=== PATIENT | female | born 1970 | race Caucasian/White ===

== ENCOUNTER 2017-02-01 10:24 | Emergency (ER) | payer BC, OTHER ==
[~2017-02-01] VITALS: Ht 162.6 cm; Wt 108.9 kg
[~2017-02-01 10:24] MED LIST: BACTRIM-DS1 EA PO; KEFLEX500 MG PO; NORCO 10-325 T1 EACH PO; NORCO 5-325 TA1 EACH PO; VIBRAMYCIN100 MG ORAL
[2017-02-01] MEDS ORDERED: NKM (10:36)
[2017-02-01] MEDS ORDERED: Famotidine 20 MG/ 2ML VIAL IVP ONE (10:45)
[2017-02-01 11:15] VITALS: BP 119/84
[2017-02-01 11:20] LABS: MEAN CORPUSCULAR HEMOGLOBIN 29.8 PG (27.0-31.0); MEAN CORPUSCULAR HGB CONC 32.2 G/DL (32.0-36.0); MEAN CORPUSCULAR VOLUME 92 FL (80-99); MEAN PLATELET VOLUME 8.6 FL (6.5-10.1); PLATELET COUNT 247 K/UL (150-450); RED BLOOD COUNT 5.36 M/UL (4.20-5.40); RED CELL DISTRIBUTION WIDTH 11.6 % (11.6-14.8)
[2017-02-01 11:35] LABS: ALANINE AMINOTRANSFERASE 48 U/L (3-33); ALBUMIN/GLOBULIN RATIO 1.4 (1.0-2.7); ANION GAP 17 (5-15); ASPARTATE AMINO TRANSFERASE 36 U/L (5-40); CALCIUM 9.3 mg/dL (8.6-10.2); CARBON DIOXIDE 23 mEQ/L (20-30); CHLORIDE 96 mEQ/L (98-107); CREATININE 0.6 mg/dL (0.5-0.9); GLOMERULAR FILTRATION RATE > 60 mL/min (>60); HEMOLYSIS 6; LIPASE 52 U/L (< 60); POTASSIUM 4.2 mEQ/L (3.4-4.9); SODIUM 136 mEQ/L (135-145); TOTAL PROTEIN 7.3 g/dL (6.6-8.7)
[2017-02-01 11:40] LABS: TROPONIN I < 0.30 ng/mL (<=0.30)
[2017-02-01 12:01] VITALS: BP 122/79
[2017-02-01 12:02] LABS: BAND NEUTROPHILS % (MANUAL) 4 % (0-8); BASOPHILS % (MANUAL) 0 % (0-2); EOSINOPHILS % (MANUAL) 0 % (0-3); LYMPHOCYTES % (MANUAL) 5 % (20-45); NEUTROPHILS % (MANUAL) 88 % (45-75); PLATELET ESTIMATE ADEQUATE; PLATELET MORPHOLOGY NORMAL; TOTAL CELLS COUNTED 100
[2017-02-01 12:43] LABS: APPEARANCE,URINE CLOUDY; KETONES,URINE 3+ (NEGATIVE); LEUKOCYTE ESTERASE ,URINE 1+ (NEGATIVE); NITRITE,URINE NEGATIVE (NEGATIVE); PH,URINE 6 (4.5-8.0); PROTEIN,URINE 2+ (NEGATIVE); UROBILINOGEN,URINE NORMAL MG/DL (0.0-1.0)
[2017-02-01 12:45] LABS: BACTERIA,URINE FEW /HPF; RBC,URINE TNTC /HPF (0 - 2); SQUAMOUS EPITHELIAL CELL,UR FEW /LPF (NONE/OCC)
[2017-02-01] MEDS ORDERED: Meclizine 25mg tab ORAL ONE (13:45)
[2017-02-01 14:04] VITALS: BP 100/52
--- NOTE | 2017-02-01 14:15 | Diagnostic Imaging Report ---
Clinical Indication: Abdominal pain Technique: No oral contrast utilized, per emergency room physician request IV administration nonionic contrast. Venous phase spiral acquisition obtained through the abdomen and pelvis. Multiplanar reconstructions were generated. Total dose length product 1047 mGycm. CTDIvol(s) 8 mGy Comparison: None Findings: The appendix is normal. There is colonic diverticulosis, mostly in the proximal colon. No evidence of diverticulitis. No free or loculated intraperitoneal air or fluid is evident. No small bowel distention. There is a lap band, position of which appears to be satisfactory. There is mild thickening of the distal esophageal wall, likely related to this. The remainder of the stomach and duodenum are unremarkable. The liver is diffusely markedly hypoattenuating, compatible with severe fatty change. The gallbladder is surgically absent and there are cholecystectomy clips present. The bile ducts are unremarkable. The pancreas and spleen are unremarkable. There is an accessory splenule. The adrenals are unremarkable. The kidneys demonstrate bilateral subcentimeter low-attenuation lesions which are too small to characterize. The uterus and adnexal structures are unremarkable. No pelvic or retroperitoneal or mesenteric mass or adenopathy. The lung bases demonstrate minimal atelectasis on the right. The bones are unremarkable except for minimal degenerative spondylosis changes. Impression: No acute abnormality Lap band in satisfactory position. Mild distal esophageal wall thickening, likely related to the above. Fatty liver Bilateral subcentimeter low-attenuation renal lesions, too small to characterize, most likely benign simple cortical cysts. No further followup necessary Other findings as noted, including degenerative spondylosis, right basilar atelectasis The CT scanner at [facility] is accredited by the [employer] and the scans are performed using protocols designed to limit radiation exposure to as low as reasonably achievable to attain images of sufficient resolution adequate for diagnostic evaluation.
[2017-02-01] MEDS ORDERED: ZOFRAN ODT4 MG ORAL (14:23)
[2017-02-01] MEDS ORDERED: RANITIDINE HCL150 MG ORAL (14:23)
[2017-02-01 14:28] VITALS: BP 100/52
--- NOTE | 2017-02-01 15:06 | Emergency Room Report ---
History of Present Illness General Chief Complaint: Dizziness Source: Patient Present Illness HPI 46-year-old female presents to ED for evaluation. Per EMS patient complaining of dizziness and weakness with vomiting and diarrhea x1 day. Patient has low- grade fever. States that other members of her family have similar symptoms. Denies cough. Denies dysuria or hematuria. Denies chest pain or shortness of breath. Complaining of some abdominal pain, sharp, 5/10, nonradiating. No other aggravating or relieving factors. Patient notes history of lap band surgery. Denies any other associated symptoms Allergies: Coded Allergies: SULFA (SULFONAMIDE ANTIBIOTICS) (Verified Allergy, Unknown, 02/01/17) Uncoded Allergies: Sulfa (Allergy, Unknown, 02/01/17) Patient History Past Medical History: none Past Surgical History: other - lapband Pertinent Family History: none Social History: Denies: alcohol use, drug use, smoking Last Menstrual Period: 01/28/17 Now: No Immunizations: UTD Reviewed Nursing Documentation: PMH: Agreed, PSxH: Agreed Nursing Documentation-PMH Past Medical History: No Stated History Review of Systems All Other Systems: negative except mentioned in HPI Physical Exam Vital Signs Date Time Temp Pulse Resp B/P Pulse Ox O2 Delivery O2 Flow Rate FiO2 02/01/17 10:26 99.0 130 17 119/84 100 Room Air 02/01/17 11:15 2.0 Sp02 EP Interpretation: reviewed, normal General Appearance: no apparent distress, alert, GCS 15, non-toxic, obese Head: normocephalic, atraumatic Eyes: bilateral eye PERRL, bilateral eye normal inspection ENT: hearing grossly normal, normal pharynx, no angioedema, normal voice Neck: full range of motion, supple/symm/no masses Respiratory: chest non-tender, lungs clear, normal breath sounds, speaking full sentences Cardiovascular #1: regular rate, rhythm, no edema Cardiovascular #2: 2+ carotid (R), 2+ carotid (L), 2+ radial (R), 2+ radial (L) , 2+ dorsalis pedis (R), 2+ dorsalis pedis (L) Gastrointestinal: normal bowel sounds, soft, non-distended, no guarding, no rebound Rectal: deferred Genitourinary: normal inspection, no CVA tenderness Musculoskeletal: back normal, gait/station normal, normal range of motion, non- tender Neurologic: alert, oriented x3, responsive, motor strength/tone normal, sensory intact, speech normal Psychiatric: judgement/insight normal, memory normal, mood/affect normal, no suicidal/homicidal ideation Reflexes: 3+ bicep (R), 3+ bicep (L), 3+ tricep (R), 3+ tricep (L), 3+ knee (R) , 3+ knee (L) Skin: normal color, no rash, warm/dry, well hydrated Lymphatic: no adenopathy Medical Decision Making Diagnostic Impression: Primary Impression: Gastroenteritis ER Course Hospital Course 46-year-old M presents to ED with abdominal pain, vomiting, diahrrea. dizzziness. h/o lap band surgery Differential diagnosis includes-appendicitis, cholecystitis, small bowel obstruction, gastritis, Clinical course Patient placed on stretcher. After initial history and physical I ordered labs , IV fluids, zofran, zantac and CT scan EKG - sinus tachy,no acute changes Labs - no leukocytosis, electrolytes ok, LFTs normal, UA unremarkable CT scan shows no acute pathology. lapband in place Upon reassessment, patient states pain has improved. Given improvement in symptoms and lack of acute findings, I believe patient can be safely discharged to home. Patient agrees with plan I feel this is a highly complex case requiring extensive working including EKG/ Rhythm strip, Xray/CT/US, Blood/urine lab work, repeat exams while in ED, and administration of strong opiates/narcotics for pain control, admission to hospital or close patient follow up. Diagnosis - gastroenteritis Stable and discharged to home. Followup with PMD. Return to ED if symptoms recur or worsen Labs Test 02/01/17 11:09 02/01/17 12:00 White Blood Count 9.0 K/UL (4.8-10.8) Red Blood Count 5.36 M/UL (4.20-5.40) Hemoglobin 16.0 G/DL (12.0-16.0) Hematocrit 49.5 % (37.0-47.0) Mean Corpuscular Volume 92 FL (80-99) Mean Corpuscular Hemoglobin 29.8 PG (27.0-31.0) Mean Corpuscular Hemoglobin Concent 32.2 G/DL (32.0-36.0) Red Cell Distribution Width 11.6 % (11.6-14.8) Platelet Count 247 K/UL (150-450) Mean Platelet Volume 8.6 FL (6.5-10.1) Neutrophils (%) (Auto) % (45.0-75.0) Lymphocytes (%) (Auto) % (20.0-45.0) Monocytes (%) (Auto) % (1.0-10.0) Eosinophils (%) (Auto) % (0.0-3.0) Basophils (%) (Auto) % (0.0-2.0) Differential Total Cells Counted 100 Neutrophils % (Manual) 88 % (45-75) Lymphocytes % (Manual) 5 % (20-45) Monocytes % (Manual) 3 % (1-10) Eosinophils % (Manual) 0 % (0-3) Basophils % (Manual) 0 % (0-2) Band Neutrophils 4 % (0-8) Platelet Estimate Adequate Platelet Morphology Normal Red Blood Cell Morphology Normal Sodium Level 136 mEQ/L (135-145) Potassium Level 4.2 mEQ/L (3.4-4.9) Chloride Level 96 mEQ/L (98-107) Carbon Dioxide Level 23 mEQ/L (20-30) Anion Gap 17 (5-15) Blood Urea Nitrogen 13 mg/dL (7-23) Creatinine 0.6 mg/dL (0.5-0.9) Estimat Glomerular Filtration Rate > 60 mL/min (>60) Glucose Level 314 mg/dL (74-106) Calcium Level 9.3 mg/dL (8.6-10.2) Total Bilirubin 0.6 mg/dL (0.0-1.2) Aspartate Amino Transf (AST/SGOT) 36 U/L (5-40) Alanine Aminotransferase (ALT/SGPT) 48 U/L (3-33) Alkaline Phosphatase 107 U/L (35-104) Troponin I < 0.30 ng/mL (<=0.30) Total Protein 7.3 g/dL (6.6-8.7) Albumin 4.3 g/dL (3.5-5.2) Globulin 3.0 g/dL Albumin/Globulin Ratio 1.4 (1.0-2.7) Lipase 52 U/L (< 60) Urine Color Red Urine Appearance Cloudy Urine pH 6 (4.5-8.0) Urine Specific [place] 1.015 (1.005-1.035) Urine Protein 2+ (NEGATIVE) Urine Glucose (UA) 4+ (NEGATIVE) Urine Ketones 3+ (NEGATIVE) Urine Occult Blood 5+ (NEGATIVE) Urine Nitrite Negative (NEGATIVE) Urine Bilirubin Negative (NEGATIVE) Urine Urobilinogen Normal MG/DL (0.0-1.0) Urine Leukocyte Esterase 1+ (NEGATIVE) Urine RBC Tntc /HPF (0 - 2) Urine WBC 2-4 /HPF (0 - 2) Urine Squamous Epithelial Cells Few /LPF (NONE/OCC) Urine Bacteria Few /HPF (NONE) Urine HCG, Qualitative Negative EKG Diagnostic Results Rate: tachycardiac Rhythm: NSR ST Segments: no acute changes ASA given to the pt in ED: No Rhythm Strip Diag. Results EP Interpretation: yes Rhythm: NSR, no PVC's, no ectopy CT/MRI/US Diagnostic Results CT/MRI/US Diagnostic Results : Imaging Test Ordered: CT A/P Impression lap band in place. no other acute process Last Vital Signs Date Time Temp Pulse Resp B/P Pulse Ox O2 Delivery O2 Flow Rate FiO2 02/01/17 14:28 98.4 105 18 100/52 97 Room Air 02/01/17 12:01 2.0 Status: improved Disposition: HOME, SELF-CARE Condition: Stable Scripts Ranitidine Hcl* (ZANTAC*) 150 Mg Tablet 150 MG ORAL TWICE A DAY, #30 TAB Prov: LUCITA JOHANSEN M.D. 02/01/17 Ondansetron Odt* (ZOFRAN ODT*) 4 Mg Tab.rapdis 4 MG ORAL Q6H Y for Nausea & Vomiting, #30 TAB 0 Refills Prov: LUCITA JOHANSEN M.D. 02/01/17 Patient Instructions: Viral Gastroenteritis, Adult, [id number] LUCITA JOHANSEN M.D. Feb 01, 2017 15:06
--- NOTE | 2017-02-01 15:39 | Diagnostic Imaging Report ---
Indication: COUGH Technique: One view of the chest Comparison: 12/25/2011 Findings: Lungs and pleural spaces are clear. Heart size is normal. No significant change Impression: No acute process
--- NOTE | 2017-02-02 20:26 | Cardiology Report ---
APPROVED REPORT EKG Measurement Heart [id number] Sinus tachycardia Otherwise normal ECG
== END 2017-02-01 14:37 | disposition home or self-care (01) ==
LOC: EDBD 10:24 → EDUNIT# 10:24 → EMR 11:00
DX: K52.9 Noninfective gastroenteritis and colitis, unspecified (principal); R42 Dizziness and giddiness; F50.9 Eating disorder, unspecified; Z88.2 Allergy status to sulfonamides; R00.0 Tachycardia, unspecified
CPT/HCPCS: 36415; 71010; 74177; 80053; 81003; 81025; 83690; 84484; 85007; 85025; 93005; 96360; 96374; 96375; 99284; J2405; Q9967; S0028

== ENCOUNTER 2019-12-21 07:36 | Emergency (ER) | payer OTHER ==
[~2019-12-21] VITALS: Ht 162.6 cm; Wt 99.8 kg
[~2019-12-21 07:36] MED LIST changes: +NKM; +RANITIDINE HCL150 MG ORAL; +ZOFRAN ODT4 MG ORAL
[2019-12-21] MEDS ORDERED: NOVOLOG100 UNIT/4 SQ (07:45)
[2019-12-21] MEDS ORDERED: METFORMIN HCL500 M4 ORAL (07:45)
--- NOTE | 2019-12-21 07:50 | NUR ---
ED Nurse Note: Pt walked in from home c/o sharp pain on left abdomen x 3 days. Pt reports nausea, but denies vomiting and diarrhea. Pt has recent diagnosis of abdominal hernia. Respirations even and unlabored on room air. Vitals stable as documented.
[2019-12-21 07:57] VITALS: BP 152/89
[2019-12-21] MEDS ORDERED: Morphine Sulfate 4mg/ml Inj (IV USE ONLY) IVP ONE ×2 (08:15→09:30)
--- NOTE | 2019-12-21 08:44 | Emergency Room Report ---
History of Present Illness General Chief Complaint: Abdominal Pain Source: Patient Present Illness HPI 49-year-old female presents ED for abdominal pain. Started 3 days ago. Pain is left-sided, sharp, 9 out of 10, nonradiating. Notes nausea, denies vomiting. Denies fevers or chills. Denies chest pain. States she was seen at [facility] last night. Had a CT scan which showed a hernia on the left side. Was subsequently discharged. States that she was prescribed [place] which is not helping for pain. No other aggravating relieving factors. Denies any other associated symptoms Allergies: Coded Allergies: SULFA (SULFONAMIDE ANTIBIOTICS) (Verified Allergy, Unknown, 02/01/17) Uncoded Allergies: Sulfa (Allergy, Unknown, 02/01/17) Patient History Past Medical History: DM, other - breast cancer Social History: Denies: smoking, alcohol use, drug use Now: No Immunizations: UTD Reviewed Nursing Documentation: PMH: Agreed; PSxH: Agreed Nursing Documentation-PMH Hx Diabetes: Yes - type 2 Hx Cancer: Yes - breast cancer Hx Gastrointestinal Problems: Yes Review of Systems All Other Systems: negative except mentioned in HPI Physical Exam Vital Signs Date Time Temp Pulse Resp B/P (MAP) Pulse Ox O2 Delivery O2 Flow Rate FiO2 12/21/19 07:40 98.4 87 19 157/91 (113) 99 Room Air Sp02 EP Interpretation: reviewed, normal General Appearance: alert, GCS 15, non-toxic, mild distress, obese Head: normocephalic, atraumatic Eyes: bilateral eye normal inspection, bilateral eye PERRL ENT: hearing grossly normal, normal pharynx, no angioedema, normal voice Neck: full range of motion, supple/symm/no masses Respiratory: chest non-tender, lungs clear, normal breath sounds, speaking full sentences Cardiovascular #1: regular rate, rhythm, no edema Cardiovascular #2: 2+ carotid (R), 2+ carotid (L), 2+ radial (R), 2+ radial (L) , 2+ dorsalis pedis (R), 2+ dorsalis pedis (L) Gastrointestinal: normal bowel sounds, soft, non-distended, no guarding, no rebound, tenderness - L sided abd TTP Rectal: deferred Genitourinary: normal inspection, no CVA tenderness Musculoskeletal: back normal, normal range of motion, gait/station normal, non- tender Neurologic: alert, motor strength/tone normal, oriented x3, sensory intact, responsive, speech normal Psychiatric: judgement/insight normal, memory normal, mood/affect normal, no suicidal/homicidal ideation Reflexes: 3+ bicep (R), 3+ bicep (L), 3+ tricep (R), 3+ tricep (L), 3+ knee (R) , 3+ knee (L) Skin: no rash Lymphatic: no adenopathy Medical Decision Making Diagnostic Impression: Primary Impression: Abdominal pain Qualified Codes: R10.32 - Left lower quadrant pain ER Course Hospital Course 49-year-old F presents to ED with abdominal pain. seen yesterday at [facility] for the same thing Differential diagnosis includes-appendicitis, cholecystitis, small bowel obstruction, gastritis, Clinical course Patient placed on stretcher. After initial history and physical I ordered labs , IV fluids, pain medications Labs - no leukocytosis, electrolytes ok, LFTs normal, UA unremarkable Continues to have pain. I spoke to [facility] ER. They documented that patient was seen scanning tech on 12/20. Had labs and CT. CT commented on cholecystectomy. Hiatal hernia. Lap band. No other pathology. Discussed this with the patient. I do not believe it was indicated to repeat CT at this time. Patient continues to have pain. I ordered ultrasound which was unremarkable. Dr. Moreno (surgery) at bedside to evaluate patient. He agrees that this pain is likely chronic and has a partial psychiatric component which I agree with. Patient is currently receiving treatment for breast cancer at [facility] and is receiving experimental medications. No further intervention at this time. Will discharge home. Recommend close follow-up with her specialist at [facility] I feel this is a highly complex case requiring extensive working including EKG/ Rhythm strip, Xray/CT/US, Blood/urine lab work, repeat exams while in ED, and administration of strong opiates/narcotics for pain control, admission to hospital or close patient follow up. Diagnosis - abdominal pain Stable and discharged to home. Followup with PMD. Return to ED if symptoms recur or worsen Labs Test 12/21/19 08:25 12/21/19 09:40 White Blood Count 5.7 K/UL (4.8-10.8) Red Blood Count 4.54 M/UL (4.20-5.40) Hemoglobin 13.9 G/DL (12.0-16.0) Hematocrit 40.0 % (37.0-47.0) Mean Corpuscular Volume 88 FL (80-99) Mean Corpuscular Hemoglobin 30.7 PG (27.0-31.0) Mean Corpuscular Hemoglobin Concent 34.9 G/DL (32.0-36.0) Red Cell Distribution Width 12.4 % (11.6-14.8) Platelet Count 271 K/UL (150-450) Mean Platelet Volume 6.0 FL (6.5-10.1) Neutrophils (%) (Auto) 74.4 % (45.0-75.0) Lymphocytes (%) (Auto) 17.3 % (20.0-45.0) Monocytes (%) (Auto) 6.7 % (1.0-10.0) Eosinophils (%) (Auto) 0.7 % (0.0-3.0) Basophils (%) (Auto) 0.9 % (0.0-2.0) Erythrocyte Sedimentation Rate 60 MM/HR (0-20) Sodium Level 140 MMOL/L (136-145) Potassium Level 3.8 MMOL/L (3.5-5.1) Chloride Level 101 MMOL/L (98-107) Carbon Dioxide Level 26 MMOL/L (21-32) Anion Gap 13 mmol/L (5-15) Blood Urea Nitrogen 8 mg/dL (7-18) Creatinine 0.8 MG/DL (0.55-1.30) Estimat Glomerular Filtration Rate > 60 mL/min (>60) Glucose Level 281 MG/DL (74-106) Calcium Level 9.8 MG/DL (8.5-10.1) Total Bilirubin 0.4 MG/DL (0.2-1.0) Aspartate Amino Transf (AST/SGOT) 31 U/L (15-37) Alanine Aminotransferase (ALT/SGPT) 25 U/L (12-78) Alkaline Phosphatase 118 U/L (46-116) Total Protein 8.1 G/DL (6.4-8.2) Albumin 4.0 G/DL (3.4-5.0) Globulin 4.1 g/dL Albumin/Globulin Ratio 1.0 (1.0-2.7) Lipase 189 U/L (73-393) Urine Color Yellow Urine Appearance Clear Urine pH 5 (4.5-8.0) Urine Specific [place] 1.025 (1.005-1.035) Urine Protein 2+ (NEGATIVE) Urine Glucose (UA) 3+ (NEGATIVE) Urine Ketones 1+ (NEGATIVE) Urine Blood 4+ (NEGATIVE) Urine Nitrite Negative (NEGATIVE) Urine Bilirubin Negative (NEGATIVE) Urine Urobilinogen Normal MG/DL (0.0-1.0) Urine Leukocyte Esterase 2+ (NEGATIVE) Urine RBC 2-4 /HPF (0 - 2) Urine WBC 2-4 /HPF (0 - 2) Urine Squamous Epithelial Cells Few /LPF (NONE/OCC) Urine Calcium Oxalate Crystals Few /LPF (NONE) Urine Bacteria Few /HPF (NONE) Urine HCG, Qualitative Negative (NEGATIVE) Lactic Acid Level 1.60 mmol/L (0.4-2.0) C-Reactive Protein, Quantitative 1.0 mg/dL (0.00-0.90) CT/MRI/US Diagnostic Results CT/MRI/US Diagnostic Results : Imaging Test Ordered: ABD US Impression FINDINGS: Liver: Liver measures 15.6 cm. Increased echogenicity is suggestive of hepatic steatosis. No intrahepatic bile duct dilation. Gallbladder: Status post cholecystectomy. Common bile duct: Normal common bile duct measuring 3.7 mm. No stones. No dilation. Pancreas: Pancreas is not well-visualized due to overlying bowel gas. Kidneys: Right kidney measures 10.9 cm in length. No hydronephrosis or stone. Left kidney measures 13.7 cm in length. No hydronephrosis or stone. Spleen: Spleen measures 12.1 cm. No focal lesion. Aorta: Visualized portions of the aorta are unremarkable. Inferior vena cava: Visualized portions of the IVC are unremarkable. Free fluid: No ascites. IMPRESSION: No acute findings in the abdomen. Hepatic steatosis. Last Vital Signs Date Time Temp Pulse Resp B/P (MAP) Pulse Ox O2 Delivery O2 Flow Rate FiO2 12/21/19 07:57 98.4 78 19 152/89 99 Room Air Status: improved Disposition: HOME, SELF-CARE Condition: Stable Referrals: NON PHYSICIAN (PCP) Ben De Leon MD Dec 21, 2019 08:44
[2019-12-21 08:47] LABS: BASOPHILS % (AUTO) 0.9 % (0.0-2.0); EOSINOPHILS % (AUTO) 0.7 % (0.0-3.0); HEMOGLOBIN 13.9 G/DL (12.0-16.0); LYMPHOCYTES % (AUTO) 17.3 % (20.0-45.0); MEAN CORPUSCULAR VOLUME 88 FL (80-99); MONOCYTES % (AUTO) 6.7 % (1.0-10.0); NEUTROPHILS % (AUTO) 74.4 % (45.0-75.0); PLATELET COUNT 271 K/UL (150-450); RED BLOOD COUNT 4.54 M/UL (4.20-5.40); RED CELL DISTRIBUTION WIDTH 12.4 % (11.6-14.8); WHITE BLOOD COUNT 5.7 K/UL (4.8-10.8)
[2019-12-21 08:58] LABS: ANION GAP 13 mmol/L (5-15); BLOOD UREA NITROGEN 8 mg/dL (7-18); CALCIUM 9.8 MG/DL (8.5-10.1); CARBON DIOXIDE 26 MMOL/L (21-32); CHLORIDE 101 MMOL/L (98-107); CREATININE 0.8 MG/DL (0.55-1.30); POTASSIUM 3.8 MMOL/L (3.5-5.1); SODIUM 140 MMOL/L (136-145)
[2019-12-21 09:03] LABS: ALANINE AMINOTRANSFERASE 25 U/L (12-78); ALKALINE PHOSPHATASE 118 U/L (46-116); ASPARTATE AMINO TRANSFERASE 31 U/L (15-37); BILIRUBIN,TOTAL 0.4 MG/DL (0.2-1.0)
--- NOTE | 2019-12-21 09:10 | NUR ---
ED Nurse Note: Pt states that she participates in a clinical trial for breast ca
[2019-12-21] MEDS ORDERED: Ketorolac 30mg Inj IV ONE (09:30)
[2019-12-21 10:00] VITALS: BP 129/92
--- NOTE | 2019-12-21 10:21 | Diagnostic Imaging Report ---
EXAM: US Abdomen Complete CLINICAL HISTORY: ABD PAIN TECHNIQUE: Real-time ultrasound of the abdomen with image documentation. COMPARISON: CT abdomen/pelvis on 02/01/2017 FINDINGS: Liver: Liver measures 15.6 cm. Increased echogenicity is suggestive of hepatic steatosis. No intrahepatic bile duct dilation. Gallbladder: Status post cholecystectomy. Common bile duct: Normal common bile duct measuring 3.7 mm. No stones. No dilation. Pancreas: Pancreas is not well-visualized due to overlying bowel gas. Kidneys: Right kidney measures 10.9 cm in length. No hydronephrosis or stone. Left kidney measures 13.7 cm in length. No hydronephrosis or stone. Spleen: Spleen measures 12.1 cm. No focal lesion. Aorta: Visualized portions of the aorta are unremarkable. Inferior vena cava: Visualized portions of the IVC are unremarkable. Free fluid: No ascites. IMPRESSION: No acute findings in the abdomen. Hepatic steatosis.
[2019-12-21 10:36] LABS: APPEARANCE,URINE CLEAR; BILIRUBIN, URINE NEGATIVE (NEGATIVE); GLUCOSE, URINE (UA) 3+ (NEGATIVE); KETONES,URINE 1+ (NEGATIVE); LEUKOCYTE ESTERASE ,URINE 2+ (NEGATIVE); NITRITE,URINE NEGATIVE (NEGATIVE); PH,URINE 5 (4.5-8.0); PROTEIN,URINE 2+ (NEGATIVE); UROBILINOGEN,URINE NORMAL MG/DL (0.0-1.0)
[2019-12-21 10:49] LABS: COLOR,URINE YELLOW
--- NOTE | 2019-12-21 11:48 | NUR ---
ED Nurse Note: Dr. Moreno at the beside
[2019-12-21 11:59] VITALS: BP 123/72
--- NOTE | 2019-12-21 12:11 | Consultation ---
History of Present Illness General Date patient seen: Dec 21, 2019 Reason for Hospitalization: Abdominal Pain Present Illness HPI This is a very pleasant 49-year-old female with past medical history significant for breast cancer status post bilateral mastectomy status post chemo last cycle 6 months ago who presented to [facility] complaining of intractable left-sided abdominal pain. Patient states that she has had this for some time now. Was admitted at [facility] 2 weeks ago for similar symptoms given antibiotics and discharged home safely. She presented to [facility] again 2 days ago as per report at which time she had a CT scan which was negative normal labs and was discharged from the emergency department with outpatient follow-up. She now presents to [facility] with similar complaints stating that it just has not gotten any better. States she feels terrible overall. No nausea vomiting. States she does not take in much oral intake. States she had a lap band placed many years ago and last adjustment was approximately 3 years ago and she has not followed up since. Last bowel movement yesterday normal. Surgery called to evaluate and assist with care. Patient seen, patient evaluated in the emergency department, chart reviewed. In discussing care plan with patient and her history she states that she has been on a experimental clinical trial with [facility] for a hormonal therapy for breast cancer. I asked her why she has not reached out to them despite having a emergency card which states any issues to call to them and she says she is not sure why. I asked her why she goes to [facility] as well as comes to [facility] for evaluation when her care plan provider especially with clinical trial at [facility] and she states she does not know why. Patient states that she has tramadol and [place] at home and has been taking them but they have not been making her feel better. She states she is feeling little better now that she is getting IV pain medication while she is in the emergency department. Allergies: Coded Allergies: SULFA (SULFONAMIDE ANTIBIOTICS) (Verified Allergy, Unknown, 02/01/17) Uncoded Allergies: Sulfa (Allergy, Unknown, 02/01/17) Medication History Scheduled Metformin Hcl (Metformin Hcl Er), 500 MG ORAL BID, (Reported) Miscellaneous Medications Insulin Aspart (Novolog), Unknown Dose SQ, (Reported) Discontinued Medications No Known Medications* (NKM - No Known Medications*), 0 ., (Reported) Discontinued Reason: Therapy completed Ondansetron Odt* (Zofran Odt*), 4 MG ORAL Q6H PRN for Nausea & Vomiting Discontinued Reason: Therapy completed Ranitidine Hcl* (Zantac*), 150 MG ORAL TWICE A DAY Discontinued Reason: Therapy completed Patient History History Provided By: Patient, Medical Record, PMD Healthcare decision maker Resuscitation status Advanced Directive on File Past Medical/Surgical History Past Medical/Surgical History: (1) Gastroenteritis (2) Abdominal pain Review of Systems Review of Symptoms General ROS: no weight loss or fever Psychological ROS: no depression or mood changes, no memory loss Ophthalmic ROS: no visual changes or eye irritation ENT ROS: no nasal congestion, hearing loss, dizziness Allergy and Immunology ROS: no allergic symptoms or urticaria Hematological and Lymphatic ROS: no swollen glands, unusual bleeding or bruising Endocrine ROS: no polyuria, polydipsia, weight changes, temperature intolerance Respiratory ROS: no cough, shortness of breath, or wheezing Cardiovascular ROS: no chest pain or dyspnea on exertion Gastrointestinal ROS: abdominal pain, no bright red blood in stool. Musculoskeletal ROS: no myalgias or arthralgias Neurological ROS: no TIA or stroke symptoms Dermatological ROS: no new or changing skin lesions, rashes or pruritis Physical Exam Physical Exam General appearance: alert, cooperative, no distress, appears stated age Head: Normocephalic, without obvious abnormality, atraumatic Eyes: conjunctivae/corneas clear. PERRL, EOM's intact. Fundi benign Throat: Lips, mucosa, and tongue normal. Teeth and gums normal Neck: supple, symmetrical, trachea midline, no adenopathy, thyroid: not enlarged, symmetric, no tenderness/mass/nodules, no carotid bruit and no JVD Lungs: clear to auscultation bilaterally Heart: regular rate and rhythm, S1, S2 normal, no murmur, click, rub or gallop Abdomen: soft, non-tender. Bowel sounds normal. No masses, no organomegaly. left sided near flank discomfort. also states discomfort in quadrants but non rebound, no guarding and when distracted with conversation does not have any complaints Extremities: extremities normal, atraumatic, no cyanosis or edema Pulses: 2+ and symmetric Skin: Skin color, texture, turgor normal. No rashes or lesions Neurologic: Grossly normal Last 24 Hour Vital Signs Date Time Temp Pulse Resp B/P (MAP) Pulse Ox O2 Delivery O2 Flow Rate FiO2 12/21/19 11:59 68 19 123/72 98 Room Air 12/21/19 10:00 98.0 69 19 129/92 99 Room Air 12/21/19 07:57 98.4 78 19 152/89 99 Room Air 12/21/19 07:57 78 19 Room Air 12/21/19 07:40 98.4 87 19 157/91 (113) 99 Room Air Laboratory Tests Test 12/21/19 08:25 12/21/19 09:40 White Blood Count 5.7 K/UL (4.8-10.8) Red Blood Count 4.54 M/UL (4.20-5.40) Hemoglobin 13.9 G/DL (12.0-16.0) Hematocrit 40.0 % (37.0-47.0) Mean Corpuscular Volume 88 FL (80-99) Mean Corpuscular Hemoglobin 30.7 PG (27.0-31.0) Mean Corpuscular Hemoglobin Concent 34.9 G/DL (32.0-36.0) Red Cell Distribution Width 12.4 % (11.6-14.8) Platelet Count 271 K/UL (150-450) Mean Platelet Volume 6.0 FL (6.5-10.1) L Neutrophils (%) (Auto) 74.4 % (45.0-75.0) Lymphocytes (%) (Auto) 17.3 % (20.0-45.0) L Monocytes (%) (Auto) 6.7 % (1.0-10.0) Eosinophils (%) (Auto) 0.7 % (0.0-3.0) Basophils (%) (Auto) 0.9 % (0.0-2.0) Erythrocyte Sedimentation Rate 60 MM/HR (0-20) H Sodium Level 140 MMOL/L (136-145) Potassium Level 3.8 MMOL/L (3.5-5.1) Chloride Level 101 MMOL/L (98-107) Carbon Dioxide Level 26 MMOL/L (21-32) Anion Gap 13 mmol/L (5-15) Blood Urea Nitrogen 8 mg/dL (7-18) Creatinine 0.8 MG/DL (0.55-1.30) Estimat Glomerular Filtration Rate > 60 mL/min (>60) Glucose Level 281 MG/DL (74-106) H Calcium Level 9.8 MG/DL (8.5-10.1) Total Bilirubin 0.4 MG/DL (0.2-1.0) Aspartate Amino Transf (AST/SGOT) 31 U/L (15-37) Alanine Aminotransferase (ALT/SGPT) 25 U/L (12-78) Alkaline Phosphatase 118 U/L (46-116) H Total Protein 8.1 G/DL (6.4-8.2) Albumin 4.0 G/DL (3.4-5.0) Globulin 4.1 g/dL Albumin/Globulin Ratio 1.0 (1.0-2.7) Lipase 189 U/L (73-393) Urine Color Yellow Urine Appearance Clear Urine pH 5 (4.5-8.0) Urine Specific [place] 1.025 (1.005-1.035) Urine Protein 2+ (NEGATIVE) H Urine Glucose (UA) 3+ (NEGATIVE) H Urine Ketones 1+ (NEGATIVE) H Urine Blood 4+ (NEGATIVE) H Urine Nitrite Negative (NEGATIVE) Urine Bilirubin Negative (NEGATIVE) Urine Urobilinogen Normal MG/DL (0.0-1.0) Urine Leukocyte Esterase 2+ (NEGATIVE) H Urine RBC 2-4 /HPF (0 - 2) H Urine WBC 2-4 /HPF (0 - 2) Urine Squamous Epithelial Cells Few /LPF (NONE/OCC) Urine Calcium Oxalate Crystals Few /LPF (NONE) Urine Bacteria Few /HPF (NONE) Urine HCG, Qualitative Negative (NEGATIVE) Lactic Acid Level 1.60 mmol/L (0.4-2.0) C-Reactive Protein, Quantitative 1.0 mg/dL (0.00-0.90) H Height (Feet): 5 Height (Inches): 4.00 Weight (Pounds): 220 Assessment/Plan Problem List: (1) Abdominal pain Assessment & Plan: This is a 49-year-old female with multiple comorbidities prior lap band prior bilateral vasectomy prior chemotherapy on clinical trial currently of hormonal therapy for breast cancer who has been having ongoing abdominal pain flank pain for some time now mainly on the left side but states generalized and overall generalized feeling unwell. She has been to [facility] recently on 2 different occasions prior admitted and most recently in the ED discharged safely after CT scan performed. In emergency department at [facility] center labs reviewed and otherwise unremarkable. A repeat CT was not clinically indicated given her fairly benign examination and recent CT being done without any significant abnormalities. A ultrasound was performed and otherwise normal. Clinical examination fairly benign. Patient does have a history of pain medication use as she has [place] and tramadol at home. In 3 occasions during our conversations she asked if I could help control her pain with pain medication. In discussing any potential addiction patient states that she does not want to be on pain medication and is not addicted and is fairly adamant about this. Given the above I had a discussion with patient regarding care plan. Do not recommend any acute surgical intervention at this time as none is indicated or warranted. Her examination is fairly benign labs are okay recent CT normal ultrasound normal. Discussed with patient potential considerations for admission for pain management and control and further evaluation versus if improving now discharged home with outpatient follow-up. Furthermore I strongly recommended that she reach out to her clinical trials team to inform them of her current symptoms and findings and to potentially go to [facility] for evaluation by the clinical trial team. Patient expressed understanding and says she is feeling better and would rather go home and follow-up with her [facility] team. Thank you for let me participate in patient's care available as needed ICD Codes: R10.9 - Unspecified abdominal pain SNOMED: 74064239 (2) Gastroenteritis ICD Codes: K52.9 - Noninfective gastroenteritis and colitis, unspecified SNOMED: [id number] Anthony Moreno Dec 21, 2019 12:11
[2019-12-21 12:20] VITALS: BP 128/73
--- NOTE | 2019-12-21 12:20 | NUR ---
ER DISCHARGE NOTE: Patient is cleared to be discharged per ERMD, pt is aox4, on room air, with stable vital signs. pt was given dc and prescription instructions, pt was able to verbalize understanding, pt id band and iv site removed without complications. pt is able to ambulate with steady gait. pt took all belongings.
== END 2019-12-21 12:20 | disposition home or self-care (01) ==
LOC: EMR 07:57
DX: R10.32 Left lower quadrant pain (principal); E11.9 Type 2 diabetes mellitus without complications; Z85.3 Personal history of malignant neoplasm of breast; Z88.2 Allergy status to sulfonamides; E66.9 Obesity, unspecified; Z90.49 Acquired absence of other specified parts of digestive tract; K44.9 Diaphragmatic hernia without obstruction or gangrene; Z68.37 Body mass index [BMI] 37.0-37.9, adult
CPT/HCPCS: 36415; 76700; 80053; 81003; 81025; 83605; 83690; 85025; 85651; 86140; 96361; 96374; 96375; 96376; 99284; J1885; J2270; J2405; J7030